=== PATIENT | male | born 1975 | race Caucasian/White ===

== ENCOUNTER 2017-05-14 14:50 | Emergency (ER) | payer SELFPAY ==
[~2017-05-14] VITALS: Ht 177.8 cm; Wt 80.0 kg
[2017-05-14] MEDS ORDERED: HYDROCODONE/APAP 7.5/325MG 1 TAB TABLET PO ONE (19:00)
[2017-05-14] MEDS ORDERED: TETANUS, DIPHTHERIA, PERTUSSIS VAC/PF 0.5ML (>7YR OLD) IM ONE (19:15)
[2017-05-14] MEDS ORDERED: LIDOCAINE HCL 1% 20ML VIAL (Pyxis) INJ MC ONE (19:15)
[2017-05-14] MEDS ORDERED: BACITRACIN ZINC OINT UDPKT TOP ONE (19:15)
[2017-05-14 22:30] VITALS: BP 137/76
== END 2017-05-14 23:05 | disposition home or self-care (01) ==
LOC: ER 15:31
DX: S61.012A Laceration without foreign body of left thumb without damage to nail, initial encounter (principal); S20.212A Contusion of left front wall of thorax, initial encounter; V23.5XXA Motorcycle passenger injured in collision with car, pick-up truck or van in traffic accident, initial encounter; Y93.89 Activity, other specified; Y92.488 Other paved roadways as the place of occurrence of the external cause
CPT/HCPCS: 12002; 36415; 71101; 73130; 90471; 90715; 99285; G0482; J3490; X7700; Z7610